=== PATIENT | female | born 1990 | race African-American/Black ===

== ENCOUNTER 2022-04-28 12:45 | Emergency (ER) | payer SELFPAY ==
[~2022-04-28] VITALS: Ht 165.1 cm; Wt 58.1 kg
--- NOTE | 2022-04-28 13:10 | NUR ---
BIB [address] 62 AND [employer] OFFICERS FROM A [place]OOF THREATENING TO KILL HERSELF ADMITTED TO USING [facility] LAST NIGHT. PLACED ON BED, AWAKE ALERT, SCREAMING, AGITATED, CURSING EVERYONE. SEEN AND EXAMINED BY DR ELENA.
[2022-04-28] MEDS ORDERED: LORAZEPAM INJ 2 MG/ML VIAL ONE (13:17)
--- NOTE | 2022-04-28 13:25 | NUR ---
BLOOD DRAWN AND SENT TO LAB
[2022-04-28] MEDS: LORAZEPAM INJ 2 MG/ML VIAL IV ONE (13:26)
--- NOTE | 2022-04-28 13:28 | NUR ---
Per [employer] Officer Rebel "mom called 911.--apparently she acts like this when she drinks/uses drugs. Was found on the rooftop screamind- wanting to jump. A male neighbor was talking to her trying to de-escalate when we arrived. As soon as we cuffed her she stated wanting to kill herself" Pt uncooperative/agitated/restless. Hard Restraints applied for safety and medicated as ordered. Security wanded and Sitter Kenisha provided 1:1 Direct line of sight for safety
[2022-04-28 13:43] LABS: BASOPHILS # (AUTO) 0.1 K/uL (0.0-0.2); BASOPHILS % (AUTO) 0.6 % (0.0-2.0); EOSINOPHILS % (AUTO) 1.1 % (0.0-6.0); HEMATOCRIT 40 % (33-45); LYMPHOCYTES # (AUTO) 5.3 K/uL (0.8-4.8); LYMPHOCYTES % (AUTO) 28.7 % (20.0-44.0); MEAN CORPUSCULAR HGB CONC 33 g/dl (31.0-36.0); MEAN CORPUSCULAR VOLUME 95 fL (82-100); MONOCYTES # (AUTO) 1.6 K/uL (0.1-1.30); MONOCYTES % (AUTO) 8.7 % (2.0-12.0); NEUTROPHILS # (AUTO) 11.2 K/uL (1.8-8.9); NEUTROPHILS % (AUTO) 60.9 % (43.0-81.0); PLATELET COUNT (AUTO) 376 K/uL (150-450); RED BLOOD CELL COUNT(AUTO) 4.15 MIL/uL (4.0-5.2); WHITE BLOOD COUNT (AUTO) 18.4 K/uL (4.3-11.0)
[2022-04-28 13:52] LABS: CALCIUM, SERUM 9.4 mg/dL (8.5-10.1); CARBON DIOXIDE 19 mmol/L (21-32); CHLORIDE 108 mmol/L (98-107); GLUCOSE 94 mg/dL (74-106); POTASSIUM 3.1 mmol/L (3.5-5.1); SODIUM SERUM 147 mmol/L (136-145); UREA NITROGEN, BLOOD 7 mg/dL (7-18)
[2022-04-28 13:58] LABS: ALANINE AMINOTRANSFERASE 23 U/L (12-78); ALCOHOL, BLOOD 222 mg/dL (0-0); ALKALINE PHOSPHATASE 55 U/L (46-116); ASPARTATE AMINOTRANSFERASE 25 U/L (15-37); BILIRUBIN,DIRECT 0.1 mg/dL (0.0-0.2); BILIRUBIN,TOTAL 0.5 mg/dL (0.2-1.0); TOTAL PROTEIN, SERUM 8.9 g/dL (6.4-8.2)
[2022-04-28 14:03] LABS: ACETAMINOPHEN < 10 ug/ml (10-30)
[2022-04-28] MEDS ORDERED: diphenhydrAMINE HCL 50 MG/ML VIAL ONE (14:09)
[2022-04-28] MEDS ORDERED: HALOPERIDOL LACTATE INJ 5 MG/ML VIAL ONE (14:09)
--- NOTE | 2022-04-28 14:15 | NUR ---
Pt continously screaming/cussing/thrashing in bed. Restless/agitated. Pulled out IV site - Angiocath noted to be on the floor MD notified with additional orders for IM meds
[2022-04-28] MEDS: diphenhydrAMINE HCL 50 MG/ML VIAL IV ONE (14:29)
[2022-04-28] MEDS: HALOPERIDOL LACTATE INJ 5 MG/ML VIAL IV ONE (14:30)
--- NOTE | 2022-04-28 15:17 | NUR ---
I/O Cath done as requested by Dr Ellis. UA clear- specimen sent to lab.
[2022-04-28 15:59] LABS: BILIRUBIN,URINE NEGATIVE (NEGATIVE); COLOR,URINE YELLOW (YELLOW); LEUKOCYTE ESTERASE ,URINE NEGATIVE (NEGATIVE); NITRITE, URINE POSITIVE (NEGATIVE); PROTEIN,URINE TRACE mg/dl (NEGATIVE); UGLUCOSE NEGATIVE (NEGATIVE); UROBILINOGEN,URINE 0.2 EU/dL (0.2)
--- NOTE | 2022-04-28 16:00 | NUR ---
Asleep. Respirations even/unlabored. Restraints discontinued. Sitter remains in direct line of sight
[2022-04-28] MEDS: IV NS 0.9% 1,000 ML IV ONE (16:03)
[2022-04-28] MEDS: IV LR 1000 ML 1,000 ML IV ONE (16:06)
[2022-04-28 16:20] LABS: BACTERIA,URINE Moderate /HPF (None Seen); SQUAMOUS EPITHELIAL CELL,UR Few /HPF (None Seen); WBC,URINE 0-2 /HPF (0-3)
[2022-04-28] MEDS ORDERED: CEPH500C2 PO (16:20)
[2022-04-28] MEDS: CEFTRIAXONE 1GM BAG (ER ONLY) 1 GM/50 ML PIGGYBACK IV ONE (16:56)
--- NOTE | 2022-04-28 19:45 | NUR ---
COVID ANTIGEN SWAB COLLECTED AND SENT TO LAB
[2022-04-28] MEDS ORDERED: POTASSIUM CHLORIDE 20 MEQ TAB.PRT.SR PO ONE (20:16)
[2022-04-28] MEDS: POTASSIUM CHLORIDE 20 MEQ TAB.PRT.SR PO ONE (20:18)
--- NOTE | 2022-04-28 23:12 | NUR ---
Eunice driscoll in [facility] - 04/29/22 at 0045 by JONO CALLED [facility] CLINICIAN, DHRUV REESE.
--- NOTE | 2022-04-29 00:45 | NUR ---
CALLED ART TEAMSITE DEVELOPER FOR EVALUATION.
--- NOTE | 2022-04-29 01:15 | NUR ---
ART CRISIS TEAM AT PT'S BEDSIDE
--- NOTE | 2022-04-29 09:15 | NUR ---
CALLED CLINICIAN FLORENCIO.
--- NOTE | 2022-04-29 10:02 | NUR ---
CRISIS AT BEDSIDE
--- NOTE | 2022-04-29 11:03 | NUR ---
Patient hold was broken by crisis. IV removed. Catheter intact and site benign. Pressure and 4x4 applied to site. No bleeding noted.Patient discharged to home in stable condition. Written and verbal after care instructions given. Patient verbalizes understanding of instruction.
[2022-04-29 11:04] VITALS: BP 142/68
== END 2022-04-29 11:04 | disposition home or self-care (01) ==
LOC: ER 12:47
DX: R45.851 Suicidal ideations (principal); N39.0 Urinary tract infection, site not specified; F10.129 Alcohol abuse with intoxication, unspecified; Y90.7 Blood alcohol level of 200-239 mg/100 ml; E87.6 Hypokalemia; Z20.822 Contact with and (suspected) exposure to COVID-19; E86.0 Dehydration; Z78.1 Physical restraint status; E87.0 Hyperosmolality and hypernatremia
CPT/HCPCS: 36415; 80048; 80076; 80143; 80307; 80320; 81001; 82550; 82553; 84703; 85025; 87077; 87086; 87186; 87426; 96365; 96372 ×2; 96375; 99285; C9803; J0696; J1200; J1630; J2060; J7120 ×2; G0480